=== PATIENT | male | born 1965 ===

== ENCOUNTER 2022-04-19 12:43 | Outpatient (CLI) | payer OTHER, SELFPAY ==
[2022-04-19 13:49] VITALS: BP 147/75; PULSE 82
--- NOTE | 2022-04-19 14:54 | W.PM.STED ---
Stress Test Note Date Date Seen: 04/19/22 Date of test: 04/19/22 Providers Primary care provider: Carlos Marlow Stress test physician: Ashkan Strauss Stress Test Note Stress test ordered: Stress Echo Indication for test: Atypical chest pain, history of stents Results discussion: Patient is a very nice [employer] employee who presents for the above test after discussion the risks benefits and side effects he would like to proceed, he has had this test before, pretest EKG normal sinus rhythm right bundle branch block configuration is noted, his rhythm is sinus, with a ventricular rate of 76 and a blood pressure 131/84, patient is exercised following Toni protocol for total time of 9 minutes 31 seconds, achieved him about COVID 11.1 with a maximum heart rate of 145 this is 103% of the maximum, test is terminated because of fulfillment of protocol, and some mild fatigue, during this test he had some upper trapezius pain, but no specific chest or throat discomfort, there are no tracing changes noted on the EKG. Suggestive of ischemia, he recovered normally in the recovery. Impression: Negative electrographic portion of stress echo Follow up suggested: Await echo images clinical correlation with these will be needed, echo portion will be read Cardiology, patient will follow-up with primary care.
== END 2022-04-19 12:44 | disposition home or self-care (01) ==
PROVIDERS: PCP Family Medicine; Visit Provider Family Medicine
DX: R07.89 Other chest pain (principal)
CPT/HCPCS: 93016; 93325; 93351